=== PATIENT | female | born 1975 | race Hispanic/Latino ===

== ENCOUNTER → 2017-03-28 | Emergency (ER) | payer OTHER ==
[~2017-03-28] VITALS: Ht 177.8 cm; Wt 121.3 kg
[~2017-03-28] MED LIST: BROMFED DM COU118 ML PO; NASONEX17 GM; XYZAL5 MG PO
[2017-03-28 12:49] VITALS: BP 139/79
== END | disposition home or self-care (01) ==
LOC: FSED 11:02
DX: R50.9 Fever, unspecified (principal); R05 Cough; J02.9 Acute pharyngitis, unspecified; J00 Acute nasopharyngitis [common cold]
CPT/HCPCS: 87400; 99283